=== PATIENT | male | born 1960 | race Caucasian/White ===

== ENCOUNTER 2017-11-13 06:14 | Day surgery (SDC) | payer OTHER ==
[2017-11-12 08:54] VITALS: BMI 34.8
[~2017-11-13 06:14] MED LIST: BUPIVACAINE HCL/PF 0.5% (5MG/ML) 10 ML VIAL IJ ONE; LIDOCAINE HCL 1%, 10 MG/ML (20ML VIAL) INF ONE
[2017-11-13] MEDS ORDERED: BUPIVACAINE HCL/PF 0.5% (5MG/ML) 10 ML VIAL ONE (07:23)
[2017-11-13] MEDS ORDERED: LIDOCAINE HCL 1%, 10 MG/ML (20ML VIAL) ONE (07:23)
[2017-11-13] MEDS ORDERED: ceFAZolin SODIUM 1 GM VIAL ONE (07:50)
[2017-11-13] MEDS ORDERED: PROPOFOL 20 ML ONE ×2 (07:50)
[2017-11-13] MEDS ORDERED: LIDOCAINE HCL/PF 2% SDV 5ML VIAL ONE (07:50)
[2017-11-13] MEDS ORDERED: MIDAZOLAM HCL 2 MG/2 ML SINGLE DOSE VIAL ONE (07:50)
[2017-11-13] MEDS ORDERED: ceFAZolin SODIUM 1 GM VIAL IVPB ONE (08:11)
--- NOTE | 2017-11-13 08:18 | HP ---
Satellite H - Chief Complaint Chief Complaint: left third trigger finger - Past Medical History Allergies/Adverse Reactions: Allergies Allergy/AdvReac Type Severity Reaction Status Date / Time No Known Allergies Allergy Verified 11/13/17 06:59 - Current Medications Current Medications: Home Medications Medication Instructions Recorded Ibuprofen 800 mg PO PRN 11/12/17 [place]-3 Fatty Acids/Fish Oil [Fish 1 each PO DAILY 11/12/17 Oil 1,000 mg Capsule] Tamsulosin HCl [Flomax] 0.4 mg PO DAILY 11/12/17 Varenicline Tartrate [Chantix] 1 each PO DAILY 11/12/17 Hydrocodone/Acetaminophen [Calvin 1 each PO Q6H PRN #20 tablet MDD 4 11/13/17 5-325 Tablet] Satellite Physical Exam - Physical Examination Vital Signs: Vital Signs Period Temp Pulse Resp BP Sys/Gallardo Pulse Ox Last 24 Hr 98.2 F 57 18 108/67 96 General Appearance: Well Nourished, Well Developed, Alert & Oriented x3 ENT: Clear Lung: Normal air movement Heart: Regular rate & rhythm Extremities: Other (left hand -+ ttp a1 neli 3rd, + locking, nvi) Neurological: Intact, Alert, Oriented Satellite Impression/Plan - Impression/Plan Impression: left middle trigger finger Operative Procedure: left middle trigger release Date to be Performed: 11/13/17
[2017-11-13] MEDS ORDERED: KETOROLAC TROMETHAMINE 30 MG/1 ML VIAL ONE (08:20)
[2017-11-13] MEDS ORDERED: LIDOCAINE HCL 1%, 10 MG/ML (20ML VIAL) INF ONE (08:29)
[2017-11-13] MEDS ORDERED: BUPIVACAINE HCL/PF 0.5% (5MG/ML) 10 ML VIAL IJ ONE (08:29)
--- NOTE | 2017-11-13 08:50 | OP ---
Operative Note - Note: Operative Date: 11/13/17 Pre-Operative Diagnosis: left middle trigger finger Operation: left middle finger trigger finger release, tendon sheath excision Post-Operative Diagnosis: Same as Pre-op Surgeon: aDny Cisneros Lead Tank Mechanic: Marcus Tobar Anesthesiologist/SOUS CHEF KITCHEN MANAGER: Radha Miranda Anesthesia: General, Local Specimens Removed: tendon sheath Estimated Blood Loss (mls): 0 Drains, Volume Out (mls): 0 Blood Volume Replaced (mls): 0 Fluid Volume Replaced (mls): 500 Operative Report Dictated: Yes
[2017-11-13] MEDS ORDERED: ONDANSETRON 4 MG/2 ML VIAL IVPUSH PRN (08:56)
[2017-11-13] MEDS ORDERED: oxyCODONE HCL 5 MG TABLET PO PRN (08:56)
[2017-11-13] MEDS ORDERED: LACTATED RINGERS SOLUTION 1,000 ML IV SCH (09:00)
--- NOTE | 2017-11-13 09:29 | SPEC ---
DATE OF OPERATION: 11/13/2017 PREOPERATIVE DIAGNOSIS: Left middle finger trigger finger. SURGEON: Dany Cisneros MD CERTIFIED REGISTERED DENTAL ASSISTANT: Marcus Tobar MD. ANESTHESIOLOGIST: Radha Miranda MD ANESTHESIA: LMA anesthesia with local injection of 10 mL of 0.5% Marcaine and 1% Lidocaine mix. DRAINS: None. COMPLICATIONS: None. BLOOD LOSS: None. BLOOD GIVEN: None. FLUID REPLACEMENT: 500 mL. SPECIMEN: Left middle finger tendon sheath. OPERATION: Left middle finger trigger finger release and tendon sheath excision. INDICATIONS: This patient is a 57-year-old male with a preoperative diagnosis of a recurrent left middle finger trigger finger. DESCRIPTION OF PROCEDURE: The patient was brought to the operating room, IV was placed, IV sedation was given. One gram of intravenous Ancef given. A tourniquet was applied to the left upper arm and the left upper extremity was prepped and draped in sterile fashion. The entire case was done under 3.8 loupe magnification. A marking pen was utilized to dre out a longitudinal incision in an already existing skin crease at the base of the left middle finger. Then 10 mL of 0.5% Marcaine mixed with 1% Lidocaine was injected in and around the incision. The left upper extremity was elevated, exsanguinated with an Esmarch bandage and the tourniquet inflated to 250 mmHg. A No. 15 scalpel blade was utilized to cut down through the skin. Subcutaneous hemostasis was achieved with the bipolar cautery. Additional dissection was done with Littler scissors until I was able to directly visualize the A1 neli sheath in its entirety. Self-retaining retractors were placed into the wound. A free air elevator was used to free up the tissue on the radial side, the ulnar side distally and proximally under better visualization of A1 neli sheath. Next, using a fresh No. 15 scalpel blade, I excised the central one-third of the A1 neli sheath and passed it off the field as specimen, tendon sheath, left middle finger. I then completed the release, both distally and proximally, and brought the FDS and FDP tendons out through the wound with a Ragnell retractor. There were no abnormal points of compression. I was able to move the left middle finger without the tendons bunching up at all. The area was then copiously irrigated and washed out. I then checked one more time to make sure there were no abnormal points of compression. None were seen and therefore closure was begun. One stitch using 4-0 Vicryl was used in the deep dermal layer. Skin was reapproximated with 4-0 Nylon sutures in a horizontal mattress fashion. The area was then washed and dried, covered with Xeroform gauze, sterile 4x4s, fluffs between the fingers, Webril and Coban. The tourniquet was taken down after a total tourniquet time of 13 minutes. There were no complications during the case. The patient tolerated the procedure well and was brought to the Ambulatory recovery Room in stable condition. Donnie [id number]
[2017-11-13 10:45] VITALS: BP 82/64; PULSE 55; TEMP 97.7
--- NOTE | 2017-11-14 15:42 | PATH ---
Surgical Pathology Report Patient Name: RITCHIE GAINES [facility]. Rec. #: [id number] /Age/Gender: 1960 (Age: 57) / M Account: [id number] Location: [facility] SURGICAL Taken: 11/13/2017 Received: 11/13/2017 Reported: 11/14/2017 Physicians: Marcus Tobar M.D. Specimen(s) Received TENDON SHEATH Clinical History Left third digit trigger finger Final Diagnosis FINGER, LEFT, THIRD DIGIT, TENDON SHEATH, TRIGGER FINGER RELEASE: BENIGN FIBROCONNECTIVE TISSUE, FIBROADIPOSE TISSUE AND SKELETAL MUSCLE. Electronically Signed Marie Márquez M.D. Gross Description Received in formalin labeled "tendon sheath," is a 0.5 x 0.3 x 0.2 cm aggregate of barrera soft tissue fragments. The specimen is entirely submitted in one cassette. /11/13/201711/13/2017
== END 2017-11-13 11:20 | disposition home or self-care (01) ==
LOC: JASU-SURG 06:14
PROVIDERS: ATTEND Orthopaedic Surgery
PROC: 0LN80ZZ Release Left Hand Tendon, Open Approach (ICD-10-PCS; principal; 2017-11-13 08:00)
DX: M65.332 Trigger finger, left middle finger (principal)
CPT/HCPCS: 88304-TC; 94760

== ENCOUNTER 2019-08-26 06:11 | Day surgery (SDC) | payer OTHER ==
[2019-08-25 13:02] VITALS: BMI 35.5
--- NOTE | 2019-08-25 14:23 | HP ---
Satellite [facility] - Chief Complaint Chief Complaint: right shoulder pain - Past Medical History Allergies/Adverse Reactions: Allergies Allergy/AdvReac Type Severity Reaction Status Date / Time No Known Allergies Allergy Verified 08/25/19 13:02 - Current Medications Current Medications: Home Medications Medication Instructions Recorded Ibuprofen 800 mg PO PRN 11/12/17 Gabapentin [Neurontin] 600 mg PO HS 08/25/19 Satellite Physical Exam - Physical Examination General Appearance: Well Nourished, Well Developed, Alert & Oriented x3 ENT: Clear Lung: Normal air movement Extremities: Other (right shoulder- + ttp, decr rom, +neer, + vora, + empty can, nvi, MRI + rct) Neurological: Intact, Alert, Oriented Satellite Impression/Plan - Impression/Plan Impression: right shoulder rct Operative Procedure: right shoulder arthroscopy with SAD and possible RCR Date to be Performed: 08/26/19
[2019-08-26] MEDS ORDERED: ROPIVACAINE HCL 0.5% 30ML VIAL ONE (07:29)
[2019-08-26] MEDS ORDERED: DEXAMETHASONE SOD PHOSPHATE/PF 10 MG/ML SDV ONE (07:29)
[2019-08-26] MEDS ORDERED: MIDAZOLAM HCL 2 MG/2 ML SINGLE DOSE VIAL ONE ×2 (07:34)
[2019-08-26] MEDS ORDERED: ceFAZolin SODIUM 1 GM VIAL ONE (07:34)
[2019-08-26] MEDS ORDERED: SUCCINYLCHOLINE CHLORIDE 200 MG/10 ML SYRINGE ONE (07:34)
[2019-08-26] MEDS ORDERED: DEXAMETHASONE SOD PHOSPHATE 4 MG/1 ML VIAL ONE (07:34)
[2019-08-26] MEDS ORDERED: PROPOFOL 20 ML ONE ×4 (07:34→08:29)
[2019-08-26] MEDS ORDERED: ceFAZolin SODIUM 1 GM VIAL IVPB ONE (08:20)
--- NOTE | 2019-08-26 09:18 | OP ---
Operative Note - Note: Operative Date: 08/26/19 ([facility]) Pre-Operative Diagnosis: right shoulder rct Operation: right shoulder arthroscopy, RCR Post-Operative Diagnosis: Same as Pre-op Surgeon: Dany Cisneros Accounts Payables Clerk: Mc Salter Anesthesiologist/LINER CHECKER: Ilana Villalta Anesthesia: General, Local Specimens Removed: shavings Estimated Blood Loss (mls): 5
[2019-08-26 10:26] VITALS: TEMP 97.7
[2019-08-26] MEDS ORDERED: ONDANSETRON 4 MG/2 ML VIAL IVPUSH PRN (10:30)
[2019-08-26] MEDS ORDERED: LACTATED RINGERS SOLUTION 1,000 ML IV SCH (10:30)
[2019-08-26] MEDS ORDERED: oxyCODONE HCL 5 MG TABLET PO PRN (10:30)
--- NOTE | 2019-08-26 10:51 | OP ---
DATE OF OPERATION: 08/26/2019 PREOPERATIVE DIAGNOSIS: Right rotator cuff tear. POSTOPERATIVE DIAGNOSIS: Right rotator cuff tear. PROCEDURE: Arthroscopy, right shoulder, with debridement in the subacromial space and arthroscopic right rotator cuff repair. SURGICAL ATTENDING: Dany Cisneros MD CUTCH CLEANER: CHRISTINA Lloyd ANESTHESIA: Regional and general. CLOSURE: Two SwiveLock anchors with SutureTape for rotator cuff, 3-0 nylon for skin. ESTIMATED BLOOD LOSS: Negligible. COMPLICATIONS: None. CONDITION: To recovery in stable condition. DESCRIPTION OF OPERATIVE PROCEDURE: Patient taken to the operating room on August 26, 2019. Regional as well as general anesthesia was administered by the anesthesiologist. IV Kefzol was administered prophylactically prior to the case. Patient placed in the beach chair position with all prominences well padded. Right shoulder was prepped and draped in the usual sterile fashion. First a diagnostic arthroscopy of the glenohumeral joint was performed. The posterior portal was made 2 fingerbreadths below the acromion first with a 15-blade followed by blunt trocar. Glenohumeral joint evaluation revealed the following: Intact humeral head articular cartilage; however, there was a large defect, eburnation, in the anteroinferior quadrant of the glenoid. Any loose articular cartilage was debrided. The labrum circumferentially was intact. There were no loose bodies in the axillary pouch. The subscapularis was intact to insertion. The biceps tendon was intact to its insertion. Looking superiorly, there was a small tear near the insertion of the supraspinatus. Fluid was drained from the shoulder and trocar was removed. Posterior trocar was redirected in the subacromial space. Accessory lateral portal was performed. A shaver and ArthroCare device were used to debride excessive synovium and fibrous tissues from the subacromial space, exposing the rotator cuff beneath. There were no spurs on the inferior side of the acromion, and there was sufficient space where the rotator cuff was thus left in place. Looking inferiorly on the humeral head, any fibrous tissue was debrided, exposing a crescent tear of the rotator cuff near its insertion in the supraspinatus region of the greater tuberosity. The leading edge was debrided using the shaver. Any yellow, fibrinous tissue around was also debrided using the shaver. The bed on the greater tuberosity was burred using the bur, exposing some healthy bleeding bone. The Scorpion device was used to pass 2 SutureTape threads in a horizontal mattress formation, one more anteriorly, one posteriorly. Each one was then pulled and fixated to the greater tuberosity with SwiveLock anchors. Sutures were cut flush with the bone. Shoulder was taken through a range of motion, found to have excellent stability of the repair, excellent height of the subacromial space. Fluid was drained. The trocars were removed. The portals were closed with 3-0 nylon and Aquacel dressing was applied, followed by a shoulder immobilizer. Patient awakened from anesthesia and transferred to recovery room in stable condition, no complications. Estimated blood loss negligible. Donnie PITTS/[id number]
[2019-08-26 11:48] VITALS: BP 134/83; PULSE 64
--- NOTE | 2019-08-27 17:55 | PATH ---
Surgical Pathology Report Patient Name: RITCHIE GAINES Med. Rec. #: [id number] /Age/Gender: 1960 (Age: 59) / M Account: [id number] Location: [facility] SURGICAL Taken: 08/26/2019 Received: 08/26/2019 Reported: 08/27/2019 Physicians: Dany Cisneros M.D. Specimen(s) Received RIGHT SHOULDER SHAVINGS Clinical History One Right rotator cuff tear Final Diagnosis SHOULDER SHAVINGS, RIGHT, ARTHROSCOPY: FRAGMENTS OF BENIGN CARTILAGE, BONE, DENSE FIBROCONNECTIVE TISSUE, ADIPOSE TISSUE, SYNOVIUM, AND SKELETAL MUSCLE. Electronically Signed Marie Márquez M.D. Gross Description Received in formalin, labeled "right shoulder shavings," is a 4.5 x 4.0 x 0.3 cm. aggregate of barrera-yellow soft tissue fragments. A underwriting sales representative portion is submitted in one cassette. /08/26/2019 saudi08/26/2019
== END 2019-08-26 12:00 | disposition home or self-care (01) ==
LOC: JASU-SURG 06:11
PROVIDERS: ATTEND Orthopaedic Surgery
PROC: 0LQ14ZZ Repair Right Shoulder Tendon, Percutaneous Endoscopic Approach (ICD-10-PCS; principal; 2019-08-26 08:00)
DX: M75.101 Unspecified rotator cuff tear or rupture of right shoulder, not specified as traumatic (principal)
CPT/HCPCS: 94760

== ENCOUNTER 2021-02-08 04:19 | Day surgery (SDC) | payer OTHER ==
[2021-02-03 12:59] VITALS: BMI 37.6
[2021-02-08] MEDS ORDERED: LIDOCAINE HCL 1%, 10 MG/ML (20ML VIAL) ONE (07:13)
[2021-02-08] MEDS ORDERED: BUPIVACAINE HCL/PF 0.5% (5MG/ML) 10 ML VIAL ONE (07:13)
[2021-02-08] MEDS ORDERED: PROPOFOL 20 ML ONE (07:24)
[2021-02-08] MEDS ORDERED: MIDAZOLAM HCL 2 MG/2 ML SINGLE DOSE VIAL ONE ×2 (07:25→07:46)
[2021-02-08] MEDS ORDERED: ceFAZolin SODIUM 1 GM VIAL ONE ×2 (08:23→08:56)
[2021-02-08] MEDS ORDERED: ceFAZolin SODIUM 1 GM VIAL IVPB ONE (08:25)
[2021-02-08] MEDS ORDERED: BUPIVACAINE HCL/PF 0.5% (5MG/ML) 10 ML VIAL IJ ONE (08:28)
[2021-02-08] MEDS ORDERED: LIDOCAINE HCL 1%, 10 MG/ML (20ML VIAL) SQ ONE (08:28)
[2021-02-08] MEDS ORDERED: ONDANSETRON 4 MG/2 ML VIAL IVPUSH PRN (08:51)
[2021-02-08] MEDS ORDERED: oxyCODONE HCL 5 MG TABLET PO PRN (08:51)
[2021-02-08] MEDS ORDERED: KETOROLAC TROMETHAMINE 30 MG/1 ML VIAL ONE (08:56)
[2021-02-08] MEDS ORDERED: LACTATED RINGERS SOLUTION 1,000 ML IV SCH (09:00)
[2021-02-08 09:18] VITALS: TEMP 97.9
[2021-02-08 09:48] VITALS: BP 98/56; PULSE 54
== END 2021-02-08 10:35 | disposition home or self-care (01) ==
LOC: JASU-SURG 04:19
PROVIDERS: ATTEND Orthopaedic Surgery
PROC: 0LB80ZZ Excision of Left Hand Tendon, Open Approach (ICD-10-PCS; 2021-02-08)
PROC: 0LN80ZZ Release Left Hand Tendon, Open Approach (ICD-10-PCS; principal; 2021-02-08 08:00)
DX: M65.342 Trigger finger, left ring finger (principal)